=== PATIENT | male | born 1995 | race Two or more races ===

== ENCOUNTER 2024-08-11 20:58 | Emergency (ER) | payer MEDICAID, SELFPAY ==
[2024-08-11 20:59] VITALS: BMI 27.3
[2024-08-11 21:39] VITALS: BP 123/94; PULSE 102; RESP 20; TEMP 36.8; O2SAT 98
[2024-08-11 22:00] VITALS: BP 120/94; PULSE 84; RESP 16; TEMP 36.9; O2SAT 95
--- NOTE | 2024-08-11 22:39 | EDNOTE_ITS ---
ED Male Genitalurinary RME/HPI General Chief complaint: Urogenital-Male Stated complaint: INJURY TO PENIS Time Seen by Provider: 08/11/24 21:46 Arrival date/time: 08/11/24 20:58 RME / HPI RME / HPI Narrative: This section includes all my notes and documentations, including HPI, PE, and ED course. Levi Gage MD HPI: 28 y/o male with Hx of Schizophrenia presents with pain and purulent discharge to the penis s/p fall in the shower x approximately 24 hours ago. Mother states she saw a lot of blood in the shower, describing it as a crime scene . Patient denies concern for STI. No sexual activity. No other complaints. ROS: All negative except as documented in HPI. Physical Exam: General: Alert and oriented. No acute distress when remaining still. Eyes: Conjunctivae and lids clear. ENT: No nasal congestion. Neck: Supple. Lungs: No respiratory distress. Abdomen: Soft and nontender. Normal bowel sounds. No distension. No rebound or guarding. Genitals: Dime sized wound with pus at base of glans penis inferior to urethra. Skin: Warm and dry. Neuro: Alert and oriented X 3. I reviewed all diagnostic test results: Urine tests pending. At this point, diagnoses include: Cellulitis of penis Treatment here included: Wound care, Augmentin Provided good wound care instructions and recommended outpatient follow-up. Based on my best medical judgment, made decision no further evaluation or treatm ent indicated at this time. Patient understands and agrees to the discharge instructions customized and printed, see below. Discharge instructions from Dr. Gage:? -- Take Augmentin till the germs causing your infection. -- Keep the current dressing intact for 24 hours. -- After 24 hours, change the dressing once daily. -- First remove the dressing gently.? If it does not come off easily, run water through it until it comes off easily. -- Then gently wash with soap and water. -- After completely drying, apply antibiotic ointment and new dressing. -- See a private doctor outside the ER on 08/13/2024 for recheck. Ask to review all test results from today, to make sure you receive all necessary follow-ups and monitoring. Ask for help until you are completely better. -- Seek immediate medical care with fever, spreading redness from the wound despite taking Augmentin for 24 hours, or with any concerns. Levi Gage MD Related Data Home Medications ?Medication ?Instructions ?Recorded ?Confirmed olanzapine 10 mg tablet 10 mg PO DAILY 04/22/2204/07 Previous Rx's ?Medication ?Instructions ?Recorded ondansetron HCl 4 mg tablet 4 mg PO TID PRN nausea and 04/22/22 vomiting #14 tabs amoxicillin 875 mg-potassium 1 tab PO BID 7 days #14 t abs 08/11/24 clavulanate 125 mg tablet Allergies Allergy/AdvReac Type Severity Reaction Status Date / Time NKA* Allergy Uncoded 06/09/21 00:20 Review of Systems Review of Systems Systems Reviewed: All systems reviewed, normal except as documented Past Medical History Past Medical History PSYCHO/SOCIAL: Positive Schizophrenia and Behavior Problems Social History SMOKING STATUS: Former smoker ED Exam Narrative Physical exam: Refer to HPI Course Quality Measures none Orders Category Date Time Status Wound Care [Wound Care] NOW Care 08/11/24 22:39 Completed Chlamydia/GC/TV - PCR Stat Lab 08/11/24 22:33 Ordered Amoxicillin/Pot Clav 875 [Augmentin 875] Med 08/11/24 22:40 Discontinued 1 tab PO X1 ONE Vital Signs Vital signs: Vital Signs Temperature 98.3 F 08/11/24 21:39 Pulse Rate 102 H 08/11/24 21:39 Respiratory Rate 20 08/11/24 21:39 Blood Pressure 123/94 H 08/11/24 21:39 Pulse Oximetry (%) 98 08/11/24 21:39 Oxygen Delivery Method Room Air 08/11/24 21:39 Urogenital - Male MDM Narrative MDM Narrative:: Scribe Attestation: Brook Pizarro am scribing for and in the presence of Dr. Gage. Provider Notation: Although this document has been carefully reviewed, there may still be some phonetic and other typographical errors.? These errors are purely grammatical due to imperfections in the software program and should not be construed in any way to? compromise the substance of the patient's medical care during this visit. 28 y/o male with Hx of Schizophrenia presents with pain and purulent discharge to the penis s/p fall in the shower x approximately 24 hours ago. Mother states she saw a lot of blood in the shower, describing it as a crime scene . Patient denies concern for STI. No other concern. Patient data External records reviewed:: [facility] previous records (Reviewed prior ED records from 04/22/22. Patient was seen for Abdominal pain.) Clinical information provided by:: patient and parent (mother) Social determinants that could affect healthcare access:: none Patient has the following chronic illnesses:: Schizophrenia How is presenting disease/condition affected by chronic disease/condition?: uneffected by Evaluation data The following diagnostics were reviewed and interpreted by me:: lab results Lab and/or radiology exams considered but not ordered:: None Interpretation Summary: I reviewed all diagnostic test results: Urine tests pending. Medications / Prescriptions Medications or Prescriptions considered but not ordered:: None Medication administrations:: Medication Administration History Discontinued Medications Amoxicillin/Clavulanate Potassium (Amoxicillin/Pot Clav 875 Tablet) 1 tab PO X1 ONE Stop: 08/11/24 22:41 Last Admin: 08/11/24 22:54 Dose: 1 tab Documented By: ISAIAH Augmentin Consultations Consultation(s) initiated? (list below): No Diagnosis Urogenital Male Differential Diagnosis: urinary tract infection, priapism, urethritis, epididymitis and genital herpes simplex Most likely diagnosis given after review of the tests above:: Cellulitis of penis Admission Indicated Admission indicated?: not indicated Explain why admission is indicated or not indicated:: With no severe illness, there was no indication for admission. Admission Request Was there a request for admission?: No Disposition Plan Disposition Plan: Discharge Discharge Attestation Discharge Attestation: The patient and all family members were given an opportunity to ask questions and understood the discharge instructions. Discharge instructions specifically effects, indications for sooner follow up or return to the emergency department, and the expected course of current diagnosis. Patient condition: Stable Discharge Plan Plan Patient Disposition: HOME (Self Care) Prescriptions/Referrals Prescriptions/Med Rec: New amoxicillin-pot clavulanate 875-125 mg tablet 1 tab PO BID 7 Days Qty: 14 0RF No Action olanzapine 10 mg tablet 10 mg PO DAILY Patient Comments: TAKE 1 TABLET BY MOUTH EVERY DAY ondansetron HCl 4 mg tablet 4 mg PO TID PRN (Reason: nausea and vomiting) Qty: 14 0RF Referrals: No Primary/Family,Physician [Primary Care Provider] - In 1 week Problem List Clinical Impression: Cellulitis of penis Patient/Caregiver Discharge Instructions Discharge Activity: activity as tolerated Education Materials: ED Cellulitis Additional Instructions: Discharge instructions from Dr. Gage:? -- Take Augmentin till the germs causing your infection. -- Keep the current dressing intact for 24 hours. -- After 24 hours, change the dressing once daily. -- First remove the dressing gently.? If it does not come off easily, run water through it until it comes off easily. -- Then gently wash with soap and water. -- After completely drying, apply antibiotic ointment and new dressing. -- See a private doctor outside the ER on 08/13/2024 for recheck. Ask to review all test results from today, to make sure you receive all necessary follow-ups and monitoring. Ask for help until you are completely better. -- Seek immediate medical care with fever, spreading redness from the wound despite taking Augmentin for 24 hours, or with any concerns. Print Language: Indonesian Stand Alone Forms: Mercedes Award Info., Patient Portal Info Letter
[2024-08-11] MEDS: AMOXICILLIN/POT CLAV 875 TABLET 1 TAB PO (22:54)
== END 2024-08-11 22:56 | disposition home or self-care (01) ==
PROVIDERS: Emergency Provider Emergency Medicine
DX: S39.94XA Unspecified injury of external genitals, initial encounter (principal); W18.2XXA Fall in (into) shower or empty bathtub, initial encounter
CPT/HCPCS: 81001; 87491; 87591; 87661; 99282; A9270